=== PATIENT | male | born 1990 | race American Indian/Alaskan Native ===

== ENCOUNTER 2017-06-22 02:58 | Emergency (ER) | payer SELFPAY ==
[2017-06-22 04:38] LABS: Basophils # (Auto) 0.1 K/mm3 (0.0-0.1); Basophils % (Auto) 0.8 % (0.0-1.8); Eosinophils # (Auto) 0.1 K/mm3 (0.0-0.4); Eosinophils % (Auto) 2.4 % (0.0-4.3); Hematocrit 41.5 % (35.5-45.6); Hemoglobin 13.6 gm/dl (11.8-15.2); Lymphocytes # (Auto) 2.5 K/mm3 (1.2-5.4); Lymphocytes % (Auto) 40.6 % (13.4-35.0); Mean Corpuscular HGB Conc 33 % (32-34); Mean Corpuscular Hemoglobin 29 pg (28-32); Mean Corpuscular Volume 89 fl (84-94); Monocytes # (Auto) 0.6 K/mm3 (0.0-0.8); Monocytes % (Auto) 9.5 % (0.0-7.3); Platelet Count 301 K/mm3 (140-440); Red Blood Count 4.64 M/mm3 (3.65-5.03)
[2017-06-22 04:57] LABS: BUN/Creatinine Ratio 20; Blood Urea Nitrogen 20 mg/dL (9-20); Calcium 9.1 mg/dL (8.4-10.2); Hemolysis Index 9
[2017-06-22] MEDS ORDERED: NACL 0.9% 1000 ML 2,000 ML IV ONE (06:21)
[2017-06-22] MEDS ORDERED: ATIVAN IV PRN (06:21)
[2017-06-22] MEDS ORDERED: HALDOL IM PRN (06:21)
--- NOTE | 2017-06-22 06:22 | Emergency Department Report ---
ED General Adult HPI - General Chief complaint: Overdose Stated complaint: POSS OD Time Seen by Provider: 06/22/17 06:17 Source: EMS (ems notes not available at time of chart dictation), RN notes reviewed Mode of arrival: Stretcher Limitations: Altered Mental Status - History of Present Illness Initial comments: This is a 26-year-old male who is previously unknown to this provider. The patient is somnolent, altered, and cannot provide history to this physician. As per written report from triage nurse, the patient was found unresponsive with pinpoint pupils and a hotel known for heroin use. Patient was given 4 mg of Narcan and routes. He is unable to follow commands. The patient cannot offer additional history. Apparently as per the night nurse taking care of him he was following some commands. Currently he does not follow commands, shuffles around in bed when examined, he cannot describe exacerbating or relieving factors or radiation. No additional history is available at this time. -: This evening Consistency: constant Improves with: none Worsens with: none Associated Symptoms: confusion, other - Related Data Home Medications Medication Instructions Recorded Confirmed Last Taken Unobtainable 06/22/17 06/22/17 Unknown Allergies Allergy/AdvReac Type Severity Reaction Status Date / Time Unable to Assess Allergy Unverified 06/22/17 03:17 ED Review of Systems ROS: Stated complaint: POSS OD Other details as noted in HPI Comment: Unobtainable due to pts medical conditions ED Past Medical Hx - Social History Smoking Status: Unknown if ever smoked Substance Use Type: Heroin - Medications Home Medications: Home Medications Medication Instructions Recorded Confirmed Last Taken Type Unobtainable 06/22/17 06/22/17 Unknown History ED Physical Exam - General Limitations: Altered Mental Status General appearance: in no apparent distress, lethargic - Head Head exam: Present: atraumatic, normocephalic - Eye Eye exam: Present: normal appearance, other (pupils are dilated and react to light bilaterally. Patient closes eyelids very tightly when I attempt to examine his eyes) - ENT ENT exam: Present: normal orophraynx, mucous membranes moist - Neck Neck exam: Present: normal inspection, full ROM. Absent: tenderness, meningismus - Respiratory Respiratory exam: Present: normal lung sounds bilaterally. Absent: respiratory distress - Cardiovascular Cardiovascular Exam: Present: regular rate, normal rhythm, normal heart sounds. Absent: systolic murmur, diastolic murmur, rubs, gallop - GI/Abdominal GI/Abdominal exam: Present: soft, normal bowel sounds. Absent: distended, tenderness, guarding, rebound, rigid, pulsatile mass - Rectal Rectal exam: Present: deferred - exam: Present: normal inspection External exam: Present: normal external exam - Extremities Exam Extremities exam: Present: normal inspection, normal capillary refill, other ( the compartments are soft. There is no compartmental tenderness. There is no long bony tenderness.). Absent: tenderness, pedal edema, joint swelling, calf tenderness - Back Exam Back exam: Present: normal inspection, full ROM. Absent: paraspinal tenderness , vertebral tenderness - Neurological Exam Neurological exam: Present: altered, other (patient is sleepy. He does not follow my commands. He moves 4 extremities intermittently and spontaneously) - Psychiatric Psychiatric exam: Present: other (the patient is not verbal to my commands) - Skin Skin exam: Present: warm, dry, intact, normal color. Absent: rash ED Course Vital Signs 06/22/17 06/22/17 06/22/17 03:18 03:54 09:23 Temperature 97.7 F Pulse Rate 70 65 Respiratory 12 12 12 Rate Blood Pressure 120/68 Blood Pressure [Right] O2 Sat by Pulse 100 100 100 Oximetry 06/22/17 06/22/17 06/22/17 09:28 09:30 09:45 Temperature Pulse Rate 66 76 63 Respiratory 13 17 14 Rate Blood Pressure 101/72 118/72 Blood Pressure 104/71 [Right] O2 Sat by Pulse 100 98 Oximetry 06/22/17 06/22/17 06/22/17 10:00 10:15 10:30 Temperature Pulse Rate 67 69 80 Respiratory 13 12 13 Rate Blood Pressure 108/66 107/77 106/76 Blood Pressure [Right] O2 Sat by Pulse 99 Oximetry 06/22/17 06/22/17 06/22/17 10:45 11:01 11:15 Temperature Pulse Rate 68 87 70 Respiratory 14 19 14 Rate Blood Pressure 123/88 123/88 123/88 Blood Pressure [Right] O2 Sat by Pulse 100 86 100 Oximetry 06/22/17 06/22/17 06/22/17 11:31 11:45 12:00 Temperature Pulse Rate 82 70 72 Respiratory 14 15 15 Rate Blood Pressure 123/88 115/74 116/72 Blood Pressure [Right] O2 Sat by Pulse 100 100 Oximetry 06/22/17 06/22/17 06/22/17 12:15 12:30 12:45 Temperature Pulse Rate 74 66 69 Respiratory 12 12 13 Rate Blood Pressure 114/71 109/67 107/68 Blood Pressure [Right] O2 Sat by Pulse 100 100 100 Oximetry 06/22/17 06/22/17 06/22/17 13:00 13:15 13:30 Temperature Pulse Rate 63 67 69 Respiratory 12 14 14 Rate Blood Pressure 111/74 116/75 112/80 Blood Pressure [Right] O2 Sat by Pulse 100 100 100 Oximetry 06/22/17 06/22/17 06/22/17 13:45 14:00 14:15 Temperature Pulse Rate 62 67 68 Respiratory 11 L 13 13 Rate Blood Pressure 115/76 107/72 107/72 Blood Pressure [Right] O2 Sat by Pulse 100 100 80 L Oximetry 06/22/17 06/22/17 06/22/17 14:30 14:45 15:00 Temperature Pulse Rate 68 66 67 Respiratory 13 11 L 16 Rate Blood Pressure 111/73 107/77 114/75 Blood Pressure [Right] O2 Sat by Pulse 99 99 100 Oximetry 06/22/17 06/22/17 06/22/17 15:15 15:30 15:45 Temperature Pulse Rate 75 66 76 Respiratory 16 13 14 Rate Blood Pressure 118/86 115/80 117/77 Blood Pressure [Right] O2 Sat by Pulse 99 99 99 Oximetry 06/22/17 06/22/17 06/22/17 16:00 16:15 16:30 Temperature Pulse Rate 61 74 71 Respiratory 13 12 14 Rate Blood Pressure 113/75 111/73 114/74 Blood Pressure [Right] O2 Sat by Pulse 98 97 97 Oximetry 06/22/17 06/22/17 06/22/17 16:45 17:00 17:15 Temperature Pulse Rate 62 82 66 Respiratory 13 11 L 12 Rate Blood Pressure 118/84 118/84 118/82 Blood Pressure [Right] O2 Sat by Pulse 98 98 100 Oximetry 06/22/17 06/22/17 06/22/17 17:30 17:45 18:00 Temperature Pulse Rate 69 73 70 Respiratory 12 13 12 Rate Blood Pressure 103/70 98/77 94/70 Blood Pressure [Right] O2 Sat by Pulse 100 100 100 Oximetry 0406/22/17 06/22/17 18:15 18:30 18:45 Temperature Pulse Rate 65 69 71 Respiratory 11 L 12 12 Rate Blood Pressure 110/67 110/72 118/73 Blood Pressure [Right] O2 Sat by Pulse 100 100 100 Oximetry 06/22/17 06/22/17 06/22/17 19:00 19:02 19:05 Temperature 97.7 F Pulse Rate 64 67 62 Respiratory 12 15 16 Rate Blood Pressure 107/74 Blood Pressure 118/73 107/74 [Right] O2 Sat by Pulse 100 100 100 Oximetry 06/22/17 06/22/17 06/22/17 19:15 19:30 19:45 Temperature Pulse Rate 65 65 71 Respiratory 11 L 11 L 12 Rate Blood Pressure 110/71 109/70 116/77 Blood Pressure [Right] O2 Sat by Pulse 100 100 100 Oximetry 06/22/17 06/22/17 06/22/17 20:00 20:15 20:30 Temperature Pulse Rate 71 73 62 Respiratory 12 12 12 Rate Blood Pressure 111/72 112/74 110/76 Blood Pressure 111/72 [Right] O2 Sat by Pulse 100 100 100 Oximetry 06/22/17 06/22/17 06/22/17 20:45 21:00 21:15 Temperature Pulse Rate 72 73 78 Respiratory 13 13 13 Rate Blood Pressure 109/73 97/66 99/69 Blood Pressure 97/66 [Right] O2 Sat by Pulse 100 100 99 Oximetry 06/22/17 06/22/17 06/22/17 21:30 21:45 22:00 Temperature Pulse Rate 65 67 68 Respiratory 11 L 13 12 Rate Blood Pressure 103/67 107/69 Blood Pressure [Right] O2 Sat by Pulse 99 98 98 Oximetry 06/22/17 06/22/17 06/22/17 22:15 22:30 22:45 Temperature Pulse Rate 70 62 68 Respiratory 15 14 13 Rate Blood Pressure 104/66 101/66 105/64 Blood Pressure [Right] O2 Sat by Pulse 99 100 99 Oximetry 06/22/17 06/22/17 06/22/17 23:00 23:15 23:30 Temperature Pulse Rate 73 60 69 Respiratory 13 11 L 13 Rate Blood Pressure 105/66 117/58 98/63 Blood Pressure [Right] O2 Sat by Pulse 98 98 97 Oximetry 06/22/17 06/22/17 06/22/17 23:44 23:45 23:51 Temperature Pulse Rate 68 72 72 Respiratory 10 L 11 L 13 Rate Blood Pressure 98/63 103/63 103/63 Blood Pressure [Right] O2 Sat by Pulse 98 97 97 Oximetry 06/23/17 06/23/17 06/23/17 00:00 00:15 00:30 Temperature Pulse Rate 69 82 71 Respiratory 12 19 13 Rate Blood Pressure 102/68 101/67 110/66 Blood Pressure [Right] O2 Sat by Pulse 97 96 99 Oximetry 06/23/17 06/23/17 06/23/17 00:45 01:00 01:15 Temperature Pulse Rate 66 72 74 Respiratory 12 13 13 Rate Blood Pressure 109/72 108/67 106/71 Blood Pressure [Right] O2 Sat by Pulse 100 98 97 Oximetry 06/23/17 06/23/17 06/23/17 01:30 01:45 02:00 Temperature Pulse Rate 74 63 66 Respiratory 14 10 L 12 Rate Blood Pressure 110/68 120/72 105/67 Blood Pressure [Right] O2 Sat by Pulse 97 98 98 Oximetry 06/23/17 06/23/17 06/23/17 02:15 02:30 02:45 Temperature Pulse Rate 63 71 74 Respiratory 12 12 13 Rate Blood Pressure 108/71 114/72 104/70 Blood Pressure [Right] O2 Sat by Pulse 98 97 98 Oximetry 06/23/17 06/23/17 06/23/17 03:00 03:15 03:30 Temperature Pulse Rate 67 71 77 Respiratory 13 11 L 12 Rate Blood Pressure 110/69 109/68 109/70 Blood Pressure [Right] O2 Sat by Pulse 97 99 98 Oximetry 06/23/17 06/23/17 06/23/17 03:45 04:00 04:15 Temperature Pulse Rate 83 81 70 Respiratory 14 12 6 L Rate Blood Pressure 111/71 101/53 88/51 Blood Pressure [Right] O2 Sat by Pulse 97 98 97 Oximetry 06/23/17 06/23/17 06/23/17 04:31 04:45 05:01 Temperature Pulse Rate 74 84 74 Respiratory 12 19 14 Rate Blood Pressure 94/53 94/53 94/53 Blood Pressure [Right] O2 Sat by Pulse 97 97 98 Oximetry 06/23/17 06/23/17 06/23/17 05:15 05:31 05:45 Temperature Pulse Rate 81 86 79 Respiratory 13 13 13 Rate Blood Pressure 94/53 94/53 94/53 Blood Pressure [Right] O2 Sat by Pulse 98 97 97 Oximetry 06/23/17 06/23/17 06/23/17 06:01 06:15 06:31 Temperature Pulse Rate 82 79 81 Respiratory 13 12 18 Rate Blood Pressure 94/53 94/53 94/53 Blood Pressure [Right] O2 Sat by Pulse 98 98 98 Oximetry 06/23/17 06/23/17 06/23/17 06:45 08:41 08:45 Temperature Pulse Rate 80 Respiratory 12 Rate Blood Pressure 94/53 94/53 94/53 Blood Pressure [Right] O2 Sat by Pulse 97 100 98 Oximetry 06/23/17 06/23/17 06/23/17 09:01 09:15 09:31 Temperature Pulse Rate Respiratory Rate Blood Pressure 94/53 94/53 94/53 Blood Pressure [Right] O2 Sat by Pulse 100 98 100 Oximetry 06/23/17 06/23/17 06/23/17 09:45 10:01 10:15 Temperature Pulse Rate Respiratory Rate Blood Pressure 94/53 94/53 103/64 Blood Pressure [Right] O2 Sat by Pulse 98 97 98 Oximetry 06/23/17 06/23/17 06/23/17 10:20 10:31 10:45 Temperature 97.9 F Pulse Rate 73 Respiratory 13 Rate Blood Pressure 103/64 103/64 Blood Pressure 103/64 [Right] O2 Sat by Pulse 98 98 98 Oximetry 06/23/17 06/23/17 06/23/17 11:00 11:15 11:31 Temperature Pulse Rate Respiratory Rate Blood Pressure 101/66 101/66 101/66 Blood Pressure [Right] O2 Sat by Pulse 100 98 96 Oximetry 06/23/17 06/23/17 06/23/17 11:45 12:00 12:15 Temperature Pulse Rate Respiratory Rate Blood Pressure 101/66 101/66 101/66 Blood Pressure [Right] O2 Sat by Pulse 97 97 97 Oximetry 06/23/17 06/24/17 06/24/17 22:00 09:32 19:48 Temperature 97.8 F 97.9 F 97 F L Pulse Rate 82 68 88 Respiratory 18 18 18 Rate Blood Pressure Blood Pressure 106/71 110/69 114/72 [Right] O2 Sat by Pulse 98 98 99 Oximetry 06/25/17 06/25/17 08:38 08:39 Temperature 98 F Pulse Rate 68 Respiratory 16 16 Rate Blood Pressure Blood Pressure 101/68 [Right] O2 Sat by Pulse 100 Oximetry - Reevaluation(s) Reevaluation #1: 06/22/17 08:01 Differential diagnosis, including not limited to: Toxic encephalopathy, metabolic encephalopathy, intracranial hemorrhage, overdose, cervical spine injury Assessment and plan: 26-year-old male with altered mental status currently, protecting his airway, moving 4 extremities but neurologic examination otherwise limited secondary to his intoxication. Uncertain if ingestion that is reported was either intentional or recreational. He is therefore placed on a 1013. Myositis is appreciated with a creatinine kinase of 1800. Hyperammonemia also appreciated with an ammonia level of 90. CT scan of the brain and cervical spine pending. We will reassess the patient. He will be given IV fluids. The patient was somewhat agitated and would not sit still, and required Haldol and Ativan for acquisition of diagnostic studies. Reevaluation #2: 06/22/17 15:27 Patient reassessed multiple times while in the department. He is sleepy but arousable. He still cannot give me a full history as to what happened. Vital signs have remained stable. Airway remains patent and intact. Patient will be observed in the ER pending clinical sobriety. It would be reasonable to discontinue the patient's 1013 and when he is sober, and can indicate that he is not homicidal or suicidal. Reevaluation #3: 06/22/17 16:01 still sleepy but abusable. still moving 4 extremities. not clinically sober. care transferred to Dr Armijo pending clinical sobriety ED Medical Decision Making - Lab Data Result diagrams: 06/22/17 04:15 06/22/17 04:15 Vital Signs 06/22/17 06/22/17 03:18 03:54 Temperature 97.7 F Pulse Rate 70 Respiratory 12 12 Rate Blood Pressure 120/68 O2 Sat by Pulse 100 100 Oximetry Lab Results 06/22/17 06/22/17 06/22/17 Range/Units 04:15 04:15 04:15 WBC (4.5-11.0) K/mm3 RBC (3.65-5.03) M/mm3 Hgb (11.8-15.2) gm/dl Hct (35.5-45.6) % MCV (84-94) fl MCH (28-32) pg MCHC (32-34) % RDW (13.2-15.2) % Plt Count (140-440) K/mm3 Lymph % (Auto) (13.4-35.0) % Fountain % (Auto) (0.0-7.3) % Eos % (Auto) (0.0-4.3) % Baso % (Auto) (0.0-1.8) % Lymph # (1.2-5.4) K/mm3 Fountain # (0.0-0.8) K/mm3 Eos # (0.0-0.4) K/mm3 Baso # (0.0-0.1) K/mm3 Seg Neutrophils % (40.0-70.0) % Seg Neutrophils # (1.8-7.7) K/mm3 Sodium 142 (137-145) mmol/L Potassium 3.7 (3.6-5.0) mmol/L Chloride 99.6 (98-107) mmol/L Carbon Dioxide 29 (22-30) mmol/L Anion Gap 17 mmol/L BUN 20 (9-20) mg/dL Creatinine 1.0 (0.8-1.5) mg/dL Estimated GFR > 60 ml/min BUN/Creatinine Ratio 20 % Glucose 96 (75-100) mg/dL Lactic Acid (0.7-2.0) mmol/L Calcium 9.1 (8.4-10.2) mg/dL Magnesium (1.7-2.3) mg/dL Ammonia (25-60) umol/L Total Creatine Kinase (55-170) units/L Salicylates < 0.3 L (2.8-20.0) mg/dL Acetaminophen < 5.0 L (10.0-30.0) ug/mL Plasma/Serum Alcohol (0-0.07) % 06/22/17 06/22/17 06/22/17 Range/Units 04:15 04:15 04:15 WBC 6.2 (4.5-11.0) K/mm3 RBC 4.64 (3.65-5.03) M/mm3 Hgb 13.6 (11.8-15.2) gm/dl Hct 41.5 (35.5-45.6) % MCV 89 (84-94) fl MCH 29 (28-32) pg MCHC 33 (32-34) % RDW 13.0 L (13.2-15.2) % Plt Count 301 (140-440) K/mm3 Lymph % (Auto) 40.6 H (13.4-35.0) % Fountain % (Auto) 9.5 H (0.0-7.3) % Eos % (Auto) 2.4 (0.0-4.3) % Baso % (Auto) 0.8 (0.0-1.8) % Lymph # 2.5 (1.2-5.4) K/mm3 Fountain # 0.6 (0.0-0.8) K/mm3 Eos # 0.1 (0.0-0.4) K/mm3 Baso # 0.1 (0.0-0.1) K/mm3 Seg Neutrophils % 46.7 (40.0-70.0) % Seg Neutrophils # 2.9 (1.8-7.7) K/mm3 Sodium (137-145) mmol/L Potassium (3.6-5.0) mmol/L Chloride (98-107) mmol/L Carbon Dioxide (22-30) mmol/L Anion Gap mmol/L BUN (9-20) mg/dL Creatinine (0.8-1.5) mg/dL Estimated GFR ml/min BUN/Creatinine Ratio % Glucose (75-100) mg/dL Lactic Acid (0.7-2.0) mmol/L Calcium (8.4-10.2) mg/dL Magnesium (1.7-2.3) mg/dL Ammonia (25-60) umol/L Total Creatine Kinase 1846 H (55-170) units/L Salicylates (2.8-20.0) mg/dL Acetaminophen (10.0-30.0) ug/mL Plasma/Serum Alcohol < 0.01 (0-0.07) % 06/22/17 06/22/17 06/22/17 Range/Units 06:41 06:41 06:41 WBC (4.5-11.0) K/mm3 RBC (3.65-5.03) M/mm3 Hgb (11.8-15.2) gm/dl Hct (35.5-45.6) % MCV (84-94) fl MCH (28-32) pg MCHC (32-34) % RDW (13.2-15.2) % Plt Count (140-440) K/mm3 Lymph % (Auto) (13.4-35.0) % Fountain % (Auto) (0.0-7.3) % Eos % (Auto) (0.0-4.3) % Baso % (Auto) (0.0-1.8) % Lymph # (1.2-5.4) K/mm3 Fountain # (0.0-0.8) K/mm3 Eos # (0.0-0.4) K/mm3 Baso # (0.0-0.1) K/mm3 Seg Neutrophils % (40.0-70.0) % Seg Neutrophils # (1.8-7.7) K/mm3 Sodium (137-145) mmol/L Potassium (3.6-5.0) mmol/L Chloride (98-107) mmol/L Carbon Dioxide (22-30) mmol/L Anion Gap mmol/L BUN (9-20) mg/dL Creatinine (0.8-1.5) mg/dL Estimated GFR ml/min BUN/Creatinine Ratio % Glucose (75-100) mg/dL Lactic Acid 2.30 H* (0.7-2.0) mmol/L Calcium (8.4-10.2) mg/dL Magnesium 2.30 (1.7-2.3) mg/dL Ammonia 92.0 H (25-60) umol/L Total Creatine Kinase (55-170) units/L Salicylates (2.8-20.0) mg/dL Acetaminophen (10.0-30.0) ug/mL Plasma/Serum Alcohol (0-0.07) % - EKG Data -: EKG Interpreted by Me EKG shows normal: sinus rhythm, axis, intervals, QRS complexes, ST-T waves Rate: normal - EKG Data When compared to previous EKG there are: previous EKG unavailable - Radiology Data Radiology results: pending Critical care attestation.: If time is entered above; I have spent that time in minutes in the direct care of this critically ill patient, excluding procedure time. ED Disposition Clinical Impression: Polysubstance abuse Disposition: DC/TX-65 PSY HOSP/PSY UNIT Is pt being admited?: No Does the pt Need Aspirin: No Condition: Good Referrals: HERBERT DINH MD [Primary Care Provider] - 3-5 Days
[2017-06-22] MEDS ORDERED: CEPHULAC PR STA (08:07)
[2017-06-22 08:10] LABS: Bilirubin,Urine NEG (Negative); Blood,Urine NEG (Negative); Color,Urine Yellow (Yellow)
--- NOTE | 2017-06-22 08:10 | Cat Scan Report ---
FINAL REPORT EXAM: CT HEAD/BRAIN WO CON HISTORY: ams overdose TECHNIQUE: CT imaging acquired through the head without intravenous contrast. Transaxial reformations are provided. PRIORS: None. FINDINGS: The ventricles, cisterns and sulci are normal. No intraparenchymal or extra-axial mass, hemorrhage, or mass effect. [place] and white-matter differentiation is normal. Normal spherical shape of the globes. Paranasal sinuses and mastoid air cells are clear. No skull or facial fracture visualized. IMPRESSION: No acute intracranial abnormality.
--- NOTE | 2017-06-22 08:12 | Cat Scan Report ---
FINAL REPORT EXAM: CT CERVICAL SPINE WO CON HISTORY: ams overdose TECHNIQUE: CT imaging is acquired through the cervical spine without contrast. Transaxial, coronal and sagittal reformations are provided. PRIORS: None. FINDINGS: The cervical spine is intact. Vertebral body heights are preserved. No acute fracture or listhesis. Atlanto-dens interval and odontoid process are intact. Intervertebral disc spaces are preserved. No perivertebral soft tissue swelling or hematoma identified. Limited soft tissue exam of the visualized neck is unremarkable. IMPRESSION: No acute cervical spine fracture identified. Correlate with physical exam and follow up as warranted.
[2017-06-22 08:27] LABS: Mucus,Urine FEW /HPF
[2017-06-22 08:37] LABS: Amphetamine Screen,Urine PRESUMPTIVE NEGATIVE; Benzodiazepines Screen,Urine PRESUMPTIVE NEGATIVE; Cannabinoid Screen,Urine PRESUMPTIVE NEGATIVE; Methadone Screen,Urine PRESUMPTIVE NEGATIVE; Opiate Screen,Urine PRESUMPTIVE NEGATIVE
[2017-06-22 08:53] LABS: Cocaine Screen,Urine PRESUMPTIVE POSITIVE
--- NOTE | 2017-06-23 16:19 | Consultation ---
History of Present Illness - Reason for Consult Consult date: 06/23/17 Reason for consult: Mental Health Evaluation Requesting physician: HERBERT REINA - Chief Complaint Chief complaint: "I use cocaine" - History of Present Psychiatric Illness 26 y.o. AA male presenting to [facility] for being altered and somnolent. Today the patient is calm, but vague during the assessment. He did state using cocaine prior to his admission to the hospital. He could elaborate more about his actions when asked. He was asked about any family members in the local area, he stated having a brother in [place], but was hesitate to give out his number. He was asked how does he feel, he stated "I am tired." He denies SI/HI's when asked. Medications and Allergies Allergies Allergy/AdvReac Type Severity Reaction Status Date / Time Unable to Assess Allergy Unverified 06/22/17 03:17 Home Medications Medication Instructions Recorded Confirmed Last Taken Type Unobtainable 06/22/17 06/22/17 Unknown History Active Meds: Active Medications Haloperidol Lactate (Haldol) 5 mg IM Q6HR PRN PRN Reason: Agitation Last Admin: 06/22/17 07:12 Dose: 5 mg Lorazepam (Ativan) 2 mg IV Q4HR PRN PRN Reason: Agitation Last Admin: 06/22/17 07:12 Dose: 2 mg Past psychiatric history - Past Medical History Past Medical History: No medical history Past Surgical History: No surgical history - past Psychiatric treatment and history psychiatric treatment history: Denies a psy hx and fam psy hx. - Social History Social history: Lives alone Mental Status Exam - Vital signs Last Vital Signs Temp 97.9 F 06/23/17 10:20 Pulse 73 06/23/17 10:20 Resp 13 06/23/17 10:20 BP 101/66 06/23/17 12:15 Pulse Ox 97 06/23/17 12:15 - Exam Narrative exam: MSE: Appearance: calm, cooperative Behavior: poor eye contact Speech: regular rate and tone Mood: "tired" Affect: congruent to mood Thought Process: circumstantial Thought Content: denies SI/HI's and AVH's Motor Activity: lying in bed Cognition: A/O x 3 Insight: variable Judgment: variable Results Result Diagrams: 06/22/17 04:15 04/30/18 04:15 Abnormal lab results 06/23/17 Range/Units 07:36 Total Creatine Kinase 729 H (55-170) units/L All other labs normal. Assessment and Plan Assessment and plan: Impression: Today the patient is calm, but vague during the assessment. Recommendation/Plan: Continue 1013 and reassess patient in 24 hours to better determine proper treatment and dispo.
--- NOTE | 2017-06-24 13:52 | Progress Note ---
Subjective - Reason for Consult Consult date: 06/24/17 Reason for consult: Psychiatric Follow-up Evaluation - Chief Complaint Chief complaint: "I'm doing fine." Patient is a 26 year old male who presents to [facility] for being altered and somnolent. Today the patient is calm, but vague during the assessment. He states "Someone is going to come pick me up. I'm here because they found me overdosed on cocaine. I'm unsure how. All I know is I need to go home." Patient denies any past psychiatric history. He reports that he lives with stepfatherMiguel A [phone]. Mental Status Exam - Vital signs Last Vital Signs Temp 97.9 F 06/24/17 09:32 Pulse 68 06/24/17 09:32 Resp 18 06/24/17 09:32 BP 110/69 06/24/17 09:32 Pulse Ox 98 06/24/17 09:32 - Exam Narrative exam: Mental Status Exam: Appearance: Casually dressed- hospital gown Attitude/Behavior: Evasive and guarded Sensorium: Clear, intermittent (distracted) Orientation: Alert and oriented x 4 ( person, place, date, situation) Psychomotor & Musculoskeletal Activity: Sitting up in bed Speech: Rapid Mood: "Amazing" Affect: Constricted Thought Process: Circumstantial Thought Content: Reality Oriented Perception: Patient denies A/V/T hallucinations Suicidal ideation/plan: Patient denies " Not at all" Homicidal ideation/plan: Patient denies " Not at all" Insight: Variable Judgment: Variable Assessment and Plan Assessment and plan: Impression: Today the patient is cooperative but anxious during the assessment. He continues to be vague. He reports that his behavior is related to cocaine use. He denies SI/HI, A/VH, and delusions. UDS positive for cocaine. DDx: Cocaine Use Disorder Recommendation/Plan: 1. Continue 1013 and reassess patient in 24 hours. 2. Will collect collateral to determine proper treatment and dispo. 3. Discussed the risk of recreational drug use. Patient educated on the importance of abstaining from drug/alcohol use.
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
[2017-06-25] MEDS: ZOLOFT PO SCH (12:05)
[2017-06-26 07:55] VITALS: BP 99/58
[2017-06-26] MEDS ORDERED: ZOLOFT ONE (10:32)
[2017-06-26] MEDS: ZOLOFT PO SCH (10:36)
--- NOTE | 2017-06-26 13:42 | Progress Note ---
Subjective - Reason for Consult Consult date: 06/26/17 Reason for consult: Psychiatry Follow-up - Chief Complaint Chief complaint: "I feel better" 26 y.o. AA male presenting to [facility] for being altered and somnolent. Today the patient is calm during the assessment. He stated that he look forward to being discharged and plan to attend rehab services for substance abuse. Per collateral information from his brother Marcos Connolly at [phone], he stated that his brother has a substance abuse problem. He denies that the patient would ever try to kill himself. He stated that he feels safe for his brother to be discharged. The patient stated that he plan to move with his brother in [place]. He denies SI/HI's and AVH's. He denies any side effects of his medication. Mental Status Exam - Vital signs Last Vital Signs Temp 98.3 F 06/26/17 07:54 Pulse 69 06/26/17 07:54 Resp 16 06/26/17 09:20 BP 99/58 06/26/17 07:54 Pulse Ox 99 06/26/17 07:54 - Exam Narrative exam: MSE: Appearance: calm, cooperative Behavior: regular eye contact Speech: regular rate and tone Mood: "okay" Affect: congruent to mood Thought Process: linear Thought Content: denies SI/HI's and AVH's Motor Activity: ambulatory Cognition: A/O x 3 Insight: appropriate Judgment: appropriate Assessment and Plan Impression: MDD. Substance Use DO (cocaine). PTSD. Today the patient is calm and cooperative during the assessment. DDx: R/O Bipolar DO, R/O Substance Induced Mood DO Recommendation/Plan: Rescind 1013. Continue Zoloft 50 mg PO for depression/ PTSD. Discussed possible suicidality/medication induced makenzie with patient reference Zoloft. Discussed the importance to abstain from recreational drug use. The patient given outpatient rehab services fro [facility].
== END 2017-06-26 14:30 ==
LOC: EEVIPCON 02:58 → ED 02:58
DX: F32.9 Major depressive disorder, single episode, unspecified (principal); F14.10 Cocaine abuse, uncomplicated; F43.10 Post-traumatic stress disorder, unspecified; Z79.899 Other long term (current) drug therapy
CPT/HCPCS: 36415; 70450; 72125; 80048; 80307; 81001; 82140; 82550; 83735; 85025; 93005; 93010; 96361; 96372; 96374; 99285; G0480; J1630; J2060; J7030; 80320